=== PATIENT | male | born 1980 | race Caucasian/White ===

== ENCOUNTER 2023-12-19 18:08 | Emergency (ER) | payer OTHER, SELFPAY ==
[2023-12-19 18:16] VITALS: BP 170/112; PULSE 76; TEMP 36.9; O2SAT 98; BMI 29.4
--- NOTE | 2023-12-19 18:28 | ED.BACK1 ---
HPI HPI - Back Pain/Injury General Chief Complaint: Back Pain/Injury Stated Complaint: DOMINGO PAIN Time Seen by Provider: 12/19/23 18:17 Source: patient Mode of arrival: walk-in History of Present Illness HPI Narrative: Patient is here with increasing pain in his left groin area. Historically, approximate 2 years ago he had neurosurgery by a local surgeon in [facility] for herniation disc. He has been doing query pretty good but he still does a lot of manual physical labor. He did not have a new traumatic or specific event that precipitated his symptoms. He now has pain running down the medial left groin over the patella area almost down to the lower leg. Movement makes his discomfort worse. He is not running a fever. He has not had bowel or bladder incontinence. He is not on any steroids or muscle relaxants at this time. He has not called or seen his surgeon in follow-up. Related Data Home Medications ?Medication ?Instructions ?Recorded ?Confirmed levothyroxine 125 mcg tablet 125 mcg PO DAILY 12/19/23 12/19/23 metoprolol succinate 50 mg 50 mg PO DAILY 12/19/23 12/19/23 tablet,extended release 24 hr sertraline 100 mg tablet 100 mg PO DAILY 12/19/23 12/19/23 Allergies Allergy/AdvReac Type Severity Reaction Status Date / Time No Known Drug Allergies Allergy Verified 12/19/23 18:15 Opioid HPI Opioid Management Most Recent Opioid Data: No Data to Display Exam Narrative Exam Narrative: Very pleasant gentleman moves about precaution sleep. He is here with his . Neurological examination shows straight leg raising test to be restricted on the left side because of discomfort. There is not a clear-cut radiculopathy with that maneuver. His extensor houses longus function is very good bilaterally but he has weakness when he tries to toe stand on the left side. His reflexes are otherwise symmetrical. There is no sensory loss. No evidence of vascular insufficiency to his extremity. The pain is not in his buttock or lateral thigh, it is over the medial thigh and anterior thigh going down below the leg as noted earlier. Constitutional Vital Signs, click to edit/add: Last Vital Signs Temp 98.4 F 12/19/23 18:16 Pulse 76 12/19/23 18:16 Resp 15 12/19/23 18:16 BP 170/112 H 12/19/23 18:16 Pulse Ox 98 12/19/23 18:16 O2 Del Method Room Air 12/19/23 18:16 Course Vital Signs Vital signs: Vital Signs Temperature 98.4 F 12/19/23 18:16 Pulse Rate 76 12/19/23 18:16 Respiratory Rate 15 12/19/23 18:16 Blood Pressure 170/112 H 12/19/23 18:16 Pulse Oximetry 98 12/19/23 18:16 Oxygen Delivery Method Room Air 12/19/23 18:16 Temperature 98.4 F 12/19/23 18:16 Pulse Rate 76 12/19/23 18:16 Respiratory Rate 15 12/19/23 18:16 Blood Pressure 170/112 H 12/19/23 18:16 Pulse Oximetry 98 12/19/23 18:16 Oxygen Delivery Method Room Air 12/19/23 18:16 MDM - Back Pain/Injury MDM Narrative Medical decision making narrative: My recommendations included muscle relaxant steroid rest and following up with his neurosurgeon. I do not believe traditional lumbar imaging will be helpful. I have indicated that he has substantial symptomatology but mild physical findings at this time with slight weakness of his strength on the left side. Since he is already an established patient he should be able to get up and see his surgeon in a timely fashion which I would hope be sometime early next week Discharge Plan Discharge Stand Alone Forms: Portal Instructions Chief Complaint: Back Pain/Injury Clinical Impression: Lumbar radiculopathy Patient Disposition: Home, Self-Care Time of Disposition Decision: 18:31 Prescriptions / Home Meds: No Action levothyroxine 125 mcg tablet 125 mcg PO DAILY metoprolol succinate 50 mg tablet extended release 24 hr 50 mg PO DAILY sertraline 100 mg tablet 100 mg PO DAILY Print Language: Korean Additional Instructions: Robaxin [place]/prednisone/see your neurosurgeon early next week, make an appointment soon Referrals: Sushil Ivey MD [Primary Care Provider] - 1 week
[2023-12-19 18:44] VITALS: BP 146/97
== END 2023-12-19 18:46 | disposition home or self-care (01) ==
PROVIDERS: Emergency Provider Emergency Medicine Emergency Medical Services; PCP Family Medicine
DX: M54.16 Radiculopathy, lumbar region (principal); Z79.890 Hormone replacement therapy; Z79.899 Other long term (current) drug therapy
CPT/HCPCS: 99284

== ENCOUNTER 2024-01-08 09:07 | Outpatient (OUT) | payer OTHER, SELFPAY ==
--- NOTE | 2024-01-08 09:14 | MR_ITS ---
The [address] [address] Patient Name: DONALD SHAH MRN: [id number] date: 1980 Sex: M Assigned Patient Location: MRI Current Patient Location: MRI Accession/Order Number: [id number] Exam Date: 01/08/2024 10:20 Report Date: 01/08/2024 13:25 At the request of: ALEYDA PENG Procedure: MR lumbar spine wo con MRI LUMBAR SPINE WITHOUT CONTRAST, 01/08/2024 HISTORY: Lumbar spondylosis. Low back pain. Radiculopathy. COMPARISON: MRI lumbar spine without contrast, 09/30/2021. TECHNIQUE: Multiplanar, multisequence MRI imaging of the lumbar spine without contrast. FINDINGS: The spinal canal is narrowed on a developmental basis. Alignment normal. No spondylolysis. The signal in the bone marrow spaces is appropriate. No bone marrow edema. No suspicious osseous lesion. L5-S1, spinal canal is narrowed on a developmental basis. No significant acquired spinal canal stenosis. No foraminal narrowing. This level is stable. L4-L5, mild disc desiccation is slightly worse. There is a broad-based central protrusion that is new. The central protrusion superimposed on a developmentally narrow spinal canal results in severe spinal canal stenosis. No significant foraminal narrowing. L3-L4, mild degenerative disc disease with mild disc space narrowing and disc desiccation slightly worse than on the prior. The spinal canal is mildly narrowed on a developmental basis without significant acquired spinal stenosis. There is a new left foraminal disc protrusion resulting in severe left foraminal narrowing with compression of the left L3 nerve root in the left foramen. No foraminal narrowing on the right. L2-L3, mild degenerative disc disease, stable. There is no central spinal canal stenosis. The previously seen left paracentral to left foraminal disc protrusion has decreased in size. This results in moderate left foraminal narrowing which has improved. No significant right foraminal narrowing. L1-L2, no spinal stenosis. No foraminal narrowing. No abnormal signal in the conus medullaris. No paraspinal mass. MR/MR lumbar spine wo con IMPRESSION: 1. The spinal canal is narrow on a developmental basis. 2. At L4-L5, there is a new broad-based central protrusion superimposed on a developmentally narrow spinal canal resulting in severe spinal canal stenosis. 3. At L3-L4, there is a new left foraminal disc protrusion resulting in severe left foraminal narrowing with compression of the left L3 nerve root in the left foramen. 4. At L2-L3, the previously seen left paracentral to left foraminal protrusion has decreased in size. The protrusion results in moderate left foraminal narrowing, however this has improved. Electronically authenticated by: STALIN HERNANDEZ Date: 01/08/2024 13:25
== END 2024-01-08 09:08 | disposition home or self-care (01) ==
LOC: MRI 09:08
PROVIDERS: PCP Family Medicine; Visit Provider Family Medicine
DX: M47.16 Other spondylosis with myelopathy, lumbar region (principal); M51.36 Other intervertebral disc degeneration, lumbar region
CPT/HCPCS: 72148